=== PATIENT | female | born 1990 | race Caucasian/White ===

== ENCOUNTER 2025-01-05 09:56 | Outpatient (AMB) | payer OTHER, SELFPAY ==
[2025-01-05 10:04] VITALS: BP 120/78; PULSE 79; RESP 18; TEMP 36.8; O2SAT 99; BMI 37.2
--- NOTE | 2025-01-05 10:04 | MHC.OFFWIV ---
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 Pt c/o allergic reaction as she is having itchy throat facial swelling. Allergies amoxicillin [Augmentin] Allergy (Unknown, Verified 01/05/25 10:08) hives clavulanic acid [Augmentin] Allergy (Unknown, Verified 01/05/25 10:08) hives Augmentin Allergy (Unknown, Uncoded 01/05/25 10:08) rash From AUGMENTIN Allergy (Unknown, Uncoded 01/05/25 10:08) RASH From Augmentin Allergy (Unknown, Uncoded 01/05/25 10:08) RASH penicillin Allergy (Unknown, Uncoded 01/05/25 10:08) hives Do you need a note to return to daycare/school/sports/work: No HPI HPI Comments History of Present Illness Details History of Present Illness - The patient is a 34-year-old female presenting with an acute allergic reaction with facial swelling and urticaria, beginning after the use of new topical products. - Symptoms initiated with lower lip swelling, progressing to upper lip and face swelling despite self-administration of diphenhydramine, with temporary relief noted, pt has stopped using benadryl. - Patient used [employer] lotion and [employer] Moisturizer on the body, leading to the current urticarial outbreak, manifesting without respiratory symptoms. - Symptoms include widespread hives and pruritus on the trunk and extremities, alleviated partially by washing products off her body. - Current treatment remains sedative-limited in the morning due to travel, despite partial relief through previous antihistamine use. Physical Exam General: Cooperative, healthy appearing, comfortable, no acute distress and well developed Orientation: Patient oriented x3 Limitations: No limitations Head: Normal to inspection Ears: Hearing grossly normal bilaterally Nose: Normal external nose present Face and sinus: Swelling noted on the face Eyes: Appearance normal, both eyes and all related structures Neck: Normal visual inspection and Yes full ROM, good air flow Respiratory: Normal respiratory effort and able to speak in complete sentences. Clear to auscultation bilaterally Cardiovascular: Regular rate and rhythm. Normal S1 and S2 Skin: urticarial rash on torso, bilateral legs, hips and arms, edema in hands. Neuro: Patient oriented x3 Extremities: Normal to inspection Review of Systems Const All systems reviewed & are unremarkable except as noted in HPI and below Physical Exam Vital Signs: Last Vital Signs Temp 98.3 F 01/05/25 10:04 Pulse 79 01/05/25 10:04 Resp 18 01/05/25 10:04 BP 120/78 01/05/25 10:04 Pulse Ox 99 01/05/25 10:04 Oxygen Delivery Method Room Air 01/05/25 10:04 BMI result Body Mass Index 37.2 Office Meds diphenhydramine HCl 25 mg tablet Performing Provider: Liset Overton PA-C Performing Location: [facility] [place], [place] [facility] Administered by: Liset Overton PA-C on 01/05/25 10:44 Dose Route Admin Location Dispensed Lot Number Expiration Date NDC Oxyacetylene Torch Operator 25 mg PO 2 tab [id number] 06/10/27 0324-2630-47 prednisone 20 mg tablet Performing Provider: Liset Overton PA-C Performing Location: [facility] [place] [place] [facility] Administered by: Liset Overton PA-C on 01/05/25 10:44 Dose Route Admin Location Dispensed Lot Number Expiration Date NDC Oxyacetylene Torch Operator 20 mg PO 2 tab [id number] 02/08/26 Assessment & Plan Assessment & Plan (1) Contact dermatitis: Code(s): L25.9 - Unspecified contact dermatitis, unspecified cause Qualifiers: Contact dermatitis type: allergic Contact dermatitis trigger: cosmetics Qualified Code(s): L23.2 - Allergic contact dermatitis due to cosmetics Plan: VSS, pt well appearing and PE remarkable for fulminant urticarial rash and hand edema The patient requires immediate management for an acute allergic reaction, including administration of diphenhydramine for symptom control and a five-day prednisone course to manage inflammation. Gave pt 25mg Benadryl and 40mg prednisone in office. The patient receives an EpiPen for potential severe reactions, with comprehensive instruction on its use, and an emphasis on selecting hypoallergenic products. Continuation of prescribed medications is ensured via pharmacy delivery with precise dosage timing advice to promote compliance and reduce side effects. Emergency protocol, including EpiPen utilization and subsequent medical intervention, is discussed with the patient. Should discuss seeing Sander Operator with PCP. If she has any throat tickling, swelling, difficulty breathing, she should call 911 and use her Epi-pen. Patient was informed and verbally consented to the use of an ambient scribe for clinic note documentation during this visit. Orders: Orders AMB Diphenhydramine Adult Dose Today L23.2 - Allergic contact dermatitis due to cosmetics AMB Prednisone Adult Dose Today L23.2 - Allergic contact dermatitis due to cosmetics Medications: New prednisone 40 mg (2 x 20 mg) PO DAILY 8 tabs 0RF diphenhydramine HCl 25 mg PO ONCE 1 tab 0RF allergic reaction L23.2 - Allergic contact dermatitis due to cosmetics epinephrine (EpiPen 2-Jake) not to exceed 6 doses per episode 0.3 mg (0.3 mL) IM Q10M PRN 2 ea 0RF anaphylaxis prednisone 20 mg PO ONCE 2 tabs 0RF wheezing L23.2 - Allergic contact dermatitis due to cosmetics Coding Level of Care Code New Pt Level 4 (70230) Diagnoses Allergic contact dermatitis due to cosmetics L23.2 Contact dermatitis type: allergic Contact dermatitis trigger: cosmetics
== END 2025-01-05 10:50 | disposition home or self-care (01) ==
PROVIDERS: PCP Pediatrics; Visit Provider Physician Assistant
DX: L23.2 Allergic contact dermatitis due to cosmetics (principal)

== ENCOUNTER → 2025-01-05 09:56 | Outpatient (BNVA) | payer OTHER, SELFPAY | PROVIDERS: PCP Pediatrics | DX: L23.2 Allergic contact dermatitis due to cosmetics (principal) ==

== ENCOUNTER 2025-05-28 06:41 | Emergency (ER) | payer OTHER, SELFPAY ==
[2025-05-28 06:46] VITALS: BMI 34.9
[2025-05-28 06:57] VITALS: BP 148/89; PULSE 79; RESP 20; TEMP 36.8; O2SAT 99
--- NOTE | 2025-05-28 06:59 | ED_ITS ---
HPI - Allergic Reaction General Chief complaint: Allergic Reaction Stated complaint: allergic reaction Time Seen by Provider: 05/28/25 07:06 Source: patient Mode of arrival: ambulatory Limitations: no limitations History of Present Illness ED Provider: Dr. Sangita Nava HPI narrative: Patient comes to the emergency room complaining of facial swelling, upper lip swelling and feeling that her throat is closing up, becoming more difficult to talk and swallow. Patient states that the facial swelling started around 10 hours ago. Patient was given 2 tablets of Benadryl at work. Patient states that initially it seemed to improve so she went home. When patient woke up in the morning, patient had hives,, itchiness in the palms. To patient's knowledge, she is allergic to some antibiotics but has not had any antibiotics. Patient known to be allergic to her cat but the allergies are mild. Related Data Home Medications ?Medication ?Instructions ?Recorded ?Confirmed drospirenone 3 mg-ethinyl tab PO DAILY 01/05/25 estradiol 0.02 mg tablet (Maeve (28)) Previous Rx's ?Medication ?Instructions ?Recorded epinephrine 0.3 mg/0.3 mL 0.3 mg (0.3 mL) IM Q10M PRN 01/05/25 injection, auto-injector (EpiPen anaphylaxis #2 ea 2-Jake) prednisone 20 mg tablet 40 mg (2 x 20 mg) PO DAILY # 8 tabs 01/05/25 epinephrine 0.3 mg/0.3 mL 0.3 mg (0.3 mL) IM Q10M PRN 05/28/25 injection, auto-injector (EpiPen anaphylaxis #2 ea 2-Jake) famotidine 40 mg tablet 40 mg PO BEDTIME 5 days #5 t abs 05/28/25 prednisone 20 mg tablet 40 mg (2 x 20 mg) PO DAILY 5 days 05/28/25 #10 tabs Allergies Allergy/AdvReac Type Severity Reaction Status Date / Time amoxicillin (Augmentin) Allergy Unknown hives Verified 05/28/25 06:48 clavulanic acid (Augmentin) Allergy Unknown hives Verified 05/28/25 06:48 Augmentin Allergy Unknown rash Uncoded 05/28/25 06:48 From AUGMENTIN Allergy Unknown RASH Uncoded 05/28/25 06:48 From Augmentin Allergy Unknown RASH Uncoded 05/28/25 06:48 penicillin Allergy Unknown hives Uncoded 05/28/25 06:48 Review of Systems 2 Review of Systems: Constitutional : No Weight loss, No Fever, No Chills, No Night Sweats, No Fatigue, No Malaise ENT/Mouth : No Hearing loss, No Ear Pain, No Nasal Congestion, No Sinus Pain, No Hoarseness, complaining of throat feeling like it is closing up, difficulty speaking and swallowing, No Rhinorrhea, No Swallowing Difficulty Eyes: No Eye Pain, No Swelling, No Redness, No Foreign Body, No Discharge, No Vision Changes Cardiovascular : No Chest Pain, No SOB, No Dyspnea on Exertion, No Orthopnea, No Edema, No Palpitations Respiratory : No Cough, No Sputum, No Wheezing, No Smoke Exposure, No Dyspnea Gastrointestinal : No Nausea, No Vomiting, No Diarrhea, No Constipation, No abdominal Pain, No Hematochezia, No Melena Genitourinary : no irregular bleeding, No Dysuria, No Urinary Frequency, No Hematuria, No Urinary Incontinence, No Urgency, No Flank Pain, No Urinary Flow Changes, No Hesitancy Musculoskeletal : No joint pain, No Myalgias, No Joint Swelling Skin : No Skin Lesions, No rash, complaining of itchy palms, hives Neuro : No Weakness, No Numbness, No Paresthesias, No Loss of Consciousness, No Dizziness, No Headache Psych : No Anxiety/Panic, No Depression, No SI/HI/AH/VH, No Social Issues, Heme/Lymph: No Bruising, No Bleeding,No Lymphadenopathy Endocrine : No Polyuria, No Polydipsia, No Temperature Intolerance PMFSH Social History Social History Advance Directives: No Advance Directives Information Provided: No Do you have a plan to hurt others: No Plan Physical Exam ED Exam Exam: Appearance: Alert. Oriented X3. No acute distress. Eyes: Pupils equal, round and reactive to light. ENT: Pharynx normal. Patient's uvula is midline. Patient's upper lip bilaterally swelling and mild perioral swelling as well. Patient has hoarse voice Neck: Normal inspection. Neck supple. No lymph nodes noted. No crepitus CVS: Normal heart rate and rhythm. Pulses normal. Normal S1 and S2 Respiratory: No respiratory distress. Breath sounds normal. No Wheezing. No rales Abdomen: Soft and nontender. No rigidity. No distention. Skin: Skin warm and dry. Normal skin color. Normal skin turgor. Extremities: No lower extremity edema. No Lacerations. No Rash Neuro: Oriented X 3. No motor deficit. No sensory deficit. Moving all extremities. No slurred speech. CN 2 through 12 grossly intact Psych: calm, cooperative, normal affect Vital Signs: Vital Signs - 24 hr 05/28/25 06:57 05/28/25 07:09 Temperature 98.2 F Pulse Rate 79 70 Respiratory Rate 20 Blood Pressure 148/89 H 134/86 Pulse Oximetry 99 Oxygen Delivery Method Room Air BMI result Body Mass Index 34.9 Course Course Course Narrative: Patient's vitals are stable. However, patient's voice is becoming quite hoarse. Patient receiving IM epinephrine, IV Benadryl, Pepcid, Solu-Medrol. Basic labs pending. I asked patient's nurse and charge nurse to bring the patient to the main ED. Patient needs close airway monitoring , needs to be on telemetry with continuous pulse ox Sign out given to my colleague Dr. Cruz Reevaluation(s) Reevaluation #1: Patient re-evaluated, she received epinephrine, Benadryl, steroids, the time my evaluation she is speaking full sentences, she has minimal edema of the upper lip, no edema of the posterior pharynx, uvula midline Otherwise supple neck, this is a recurrent issue, she is not on lisinopril, does not really know what triggers these symptoms, was supposed to see immunology/natural resources specialist but lost her insurance nauseous her insurance back she does have a PCP, no stridor and no wheezing, we will continue to monitor but discharge is anticipated. Time: 07:20 Reevaluation #2: Re-evaluated, pretty much resolved any swelling of the upper lip, speaking full sentences doing well with the discharge see my discharge instructions Time: 09:43 Medications Administered Discontinued Medications Generic Name Dose Route Start Last Admin Trade Name Freq PRN Reason Stop Dose Admin Diphenhydramine HCl 50 mg 05/28/25 06:58 05/28/25 07:15 Diphenhydramine Hcl 50 Mg/Ml Vial IVPUSH 05/28/25 06:59 50 mg ONCE ONE Administration Epinephrine 0.3 mg 05/28/25 06:58 05/28/25 07:09 Epinephrine 1 Mg/Ml Vial IM 05/28/25 06:59 0.3 mg STAT STA Administration Famotidine 20 mg 07/18/25 06:58 05/28/25 07:15 Famotidine/Pf 20 Mg/2 Ml Vial IVPUSH 05/28/25 06:59 20 mg ONCE ONE Administration Sodium Chloride 1,000 mls @ 999 mls/hr 05/28/25 07:07 05/28/25 07:17 Ns IVCONT 05/28/25 08:07 999 mls/hr .Q1H1M ONE Administration Methylprednisolone Sodium Succinate 125 mg 05/28/25 06:58 05/28/25 07:15 Methylprednisolone Sod Succ 125 Mg/2 Ml Vial IVPUSH 05/28/25 06:59 125 mg ONCE ONE Administration Medical Decision Making Differential Diagnosis Differential Diagnoses: The differential diagnosis associated with the presentation includes (Anaphylaxis, angioedema) Admission/Observation Consideration of admission/observation: Escalation of care including admission/observation considered Lab Data 05/28/25 07:05 05/28/25 07:05 Labs: Lab Results 05/28/25 Range/Units 07:05 WBC 8.4 (4.8-10.8) X10*3/uL RBC 4.41 (4.20-5.50) X10*6/uL Hgb 10.6 L (12.0-16.0) g/dl Hct 33.0 L (37.0-47.0) % MCV 74.8 L (80.0-98.0) fL MCH 24.0 L (27.0-33.0) pg MCHC 32.1 (31.0-35.0) g/dl RDW 14.7 (11.0-16.0) % Plt Count 391 (160-400) X10*3/uL MPV 10.9 (9.4-12.3) fL Immature Gran % (Auto) 0.2 (0.0-0.4) % Neut % (Auto) 53.8 (45-73) % Lymph % (Auto) 34.7 (20-40) % [place] % (Auto) 8.6 (2-11) % Eos % (Auto) 2.3 (0-4) % Baso % (Auto) 0.4 (0-2) % Lymph # (Auto) 2.9 (1.2-4.9) X10*3/uL [place] # (Auto) 0.7 (0.1-1.2) X10*3/uL Eos # (Auto) 0.2 (0.0-0.4) X10*3/uL Baso # (Auto) 0.0 (0.0-0.2) X10*3/uL Abs Immat Gran (auto) 0.02 (0.00-0.03) X10*3/uL Absolute Neuts (auto) 4.5 (2.0-8.3) x10*3/uL Absolute Nucleated RBC 0.000 (0.0-0.012) X10*3/uL Nucleated RBC % (auto) 0.0 (0.0-0.2) /100WBC Sodium 139 (135-145) mmol/L Potassium 3.6 (3.3-5.1) mmol/L Chloride 109 H (96-108) mmol/L Carbon Dioxide 19 L (22-29) mmol/L Anion Gap 15 (12-20) BUN 9 (9-16) mg/dL Creatinine 0.66 (0.5-1.4) mg/dL Estim Creat Clear Calc 134.6 Estimated GFR > 60 Random Glucose 93 (60-115) mg/dL Calcium 9.3 (8.4-10.2) mg/dL Critical Care Time Critical Care Time Critical Care Time: Yes Total Critical Care Time: 35 Attestation: I have personally provided critical care time. Time includes review of lab data, radiology results, discussion with consultants, and monitoring for potential decompensation. Intervention performed as documented. Discharge Plan Discharge Clinical Impression: Angioedema Patient Disposition: Home, Self-Care Instructions: Angioedema (ED) Additional Instructions: We will continue with steroids starting tomorrow as well as famotidine, you will have epinephrine to self inject if you have worsening swelling or shortness of breath or difficulty breathing and then presented to emergency department for evaluation as discussed with you that is very important for you to have a follow up with the PCP and involved to figure out if this is hereditary angioedema or this is an allergy to external substances or this is a autoimmune issue. Prescriptions: New prednisone 20 mg tablet 40 mg PO DAILY 5 Days Qty: 10 0RF epinephrine [EpiPen 2-Jake] 0.3 mg/0.3 mL auto-injector 0.3 mg IM Q10M PRN (Reason: anaphylaxis) Qty: 2 0RF Rx Instructions: for 2 doses famotidine 40 mg tablet 40 mg PO BEDTIME 5 Days Qty: 5 0RF No Action drospirenone-ethinyl estradiol [Maeve (28)] 3-0.02 mg tablet PO DAILY prednisone 20 mg tablet 40 mg PO DAILY Qty: 8 0RF epinephrine [EpiPen 2-Jake] 0.3 mg/0.3 mL auto-injector 0.3 mg IM Q10M PRN (Reason: anaphylaxis) Qty: 2 0RF Rx Instructions: not to exceed 6 doses per episode Print Language: Jamaican
[2025-05-28 07:09] VITALS: BP 134/86; PULSE 70
[2025-05-28 07:09] LABS: MANUAL DIFF FLAG NO
[2025-05-28 07:11] LABS: Hematocrit 33.0 % (37.0-47.0); Hemoglobin 10.6 g/dl (12.0-16.0); Imm Gran Abs Auto 0.02 X10*3/uL (0.00-0.03); Imm Gran Pct Auto 0.2 % (0.0-0.4); Lymphocytes Absolute Auto 2.9 X10*3/uL (1.2-4.9); Mean Corpuscular HGB Conc 32.1 g/dl (31.0-35.0); Mean Corpuscular Hemoglobin 24.0 pg (27.0-33.0); Mean Corpuscular Volume 74.8 fL (80.0-98.0); NRBC Abs Auto 0.000 X10*3/uL (0.0-0.012); NRBC Pct Auto 0.0 /100WBC (0.0-0.2); Platelet Count 391 X10*3/uL (160-400); Red Blood Count 4.41 X10*6/uL (4.20-5.50); White Blood Count 8.4 X10*3/uL (4.8-10.8)
[2025-05-28 07:24] LABS: Anion Gap 15 (12-20); Blood Urea Nitrogen 9 mg/dL (9-16); Calcium 9.3 mg/dL (8.4-10.2); Carbon Dioxide 19 mmol/L (22-29); Chloride 109 mmol/L (96-108); Creatinine Clr Calc Pharmacy 134.6; Estimated Glomerular Filt Rate > 60; Potassium 3.6 mmol/L (3.3-5.1); Sodium 139 mmol/L (135-145)
[2025-05-28 10:06] VITALS: BP 128/71; PULSE 60; RESP 18; TEMP 36.6; O2SAT 96
== END 2025-05-28 10:06 | disposition home or self-care (01) ==
PROVIDERS: Emergency Provider Emergency Medicine
DX: T78.3XXA Angioneurotic edema, initial encounter (principal); J30.81 Allergic rhinitis due to animal (cat) (dog) hair and dander; X58.XXXA Exposure to other specified factors, initial encounter
CPT/HCPCS: 36415; 80048; 85025; 96361; 96372; 96374; 96375; 99283; 99291; J0165; J1200; J1308; J2919

== ENCOUNTER 2025-07-23 08:41 | Emergency (ER) | payer OTHER, SELFPAY ==
[2025-07-23 08:45] VITALS: BP 128/73; PULSE 83; RESP 18; TEMP 36.3; O2SAT 100; BMI 33.1
--- NOTE | 2025-07-23 10:31 | ED.GENADULT ---
HPI - General Adult General Chief complaint: Allergic Reaction Stated complaint: hives, SOB Time Seen by Provider: 07/23/25 09:22 Source: patient Mode of arrival: ambulatory Limitations: no limitations History of Present Illness ED Provider: LOREN Grimm HPI narrative: This is a 35-year-old female past medical history significant for contact dermatitis, allergic to amoxicillin and penicillins presenting to the emergency department with diffuse body rash ongoing since this morning. Patient reports she woke up this way, this has happened to her in the past. She denies any new lotions, creams or anything new that she may have come in contact with. She has not eaten anything new. She tells me she took 110 mg prednisone tablet which she had at home which seemed to alleviate her symptoms some. She reports she has hives all over her body they are quite itchy. She denies nausea, vomiting, chest pain, shortness breath, fevers, chills, headache, vision changes, dizziness, weakness, wheezing. Related Data Home Medications ?Medication ?Instructions ?Recorded ?Confirmed drospirenone 3 mg-ethinyl tab PO DAILY 01/05/25 estradiol 0.02 mg tablet (Maeve (28)) Previous Rx's ?Medication ?Instructions ?Recorded epinephrine 0.3 mg/0.3 mL 0.3 mg (0.3 mL) IM Q10M PRN 01/05/25 injection, auto-injector (EpiPen anaphylaxis #2 ea 2-Jake) prednisone 20 mg tablet 40 mg (2 x 20 mg) PO DAILY #8 tabs 01/05/25 epinephrine 0.3 mg/0.3 mL 0.3 mg (0.3 mL) IM Q10M PRN 05/28/25 injection, auto-injector (EpiPen anaphylaxis #2 ea 2-Jake) famotidine 40 mg tablet 40 mg PO BEDTIME 5 days #5 tabs 05/28/25 prednisone 20 mg tablet 40 mg (2 x 20 mg) PO DAILY 5 days 05/28/25 #10 tabs diphenhydramine HCl 25 mg capsule 25 mg PO TID PRN allergic reaction 07/23/25 (Benadryl) #20 caps famotidine 40 mg tablet (Pepcid) 40 mg PO DAILY #14 tabs 07/23/25 prednisone 20 mg tablet 40 mg (2 x 20 mg) PO DAILY 5 days 07/23/25 #10 tabs Allergies Allergy/AdvReac Type Severity Reaction Status Date / Time amoxicillin (Augmentin) Allergy Unknown hives Verified 07/23/25 08:48 clavulanic acid (Augmentin) Allergy Unknown hives Verified 07/23/25 08:48 Augmentin Allergy Unknown rash Uncoded 05/28/25 06:48 From AUGMENTIN Allergy Unknown RASH Uncoded 05/28/25 06:48 From Augmentin Allergy Unknown RASH Uncoded 05/28/25 06:48 penicillin Allergy Unknown hives Uncoded 05/28/25 06:48 Review of Systems Review of Systems: Yes all other systems are reviewed and are negative [facility] Past Medical History Attestation statement: The following information was validated with the patient. Source: old records reviewed and nursing notes reviewed Social History Social History Advance Directives: No Advance Directives Information Provided: No Physical Exam ED Exam Exam: Appearance: Alert.? Oriented X3.? No acute distress.? Head: Normocephalic, atraumatic, no step-offs or deformities Eyes: Pupils equal, round and reactive to light.? ENT: Pharynx normal.? Normal pharynx no edema to tongue, lips, uvula Neck: Normal inspection.? Neck supple.? CVS: Normal heart rate and rhythm.? Pulses normal.? Respiratory: No respiratory distress.? Breath sounds normal.? Abdomen: Soft and nontender.? Skin: Skin warm and dry.? Normal skin color.? Normal skin turgor.?+ Hives throughout entire body. ( image below patients leg earlier today) Extremities: No lower extremity edema.? No calf ttp. 5/5 strength to bilateral upper and lower extremities Back: No midline tenderness, no C-spine tenderness, full range of motion, no CVA tenderness bilaterally Neuro: Oriented X 3.? No motor deficit.? No sensory deficit. CN 2-12 intact Vital Signs: Vital Signs - 24 hr 07/23/25 08:45 07/23/25 11:59 Temperature 97.3 F 98.0 F Pulse Rate 83 71 Respiratory Rate 18 18 Blood Pressure 128/73 99/53 L Pulse Oximetry 100 98 Oxygen Delivery Method Room Air Room Air BMI result Body Mass Index 33.1 vss Course Reevaluation(s) Reevaluation #1: Patient feeling a lot better after IV medications. Hives much improved. Patient will be discharged home she does have an appointment with research geologist in a few days. Educated patient on diagnosis and treatment plan, answered all question, patient verbalizes understanding. At this time patient will be discharged home, advised to return with new or worsening symptoms. Educated on worrisome signs and symptoms and when to return. At this time I feel comfortable discharge home. Time: 12:21 Medications Administered Discontinued Medications Generic Name Dose Route Start Last Admin Trade Name James PRN Reason Stop Dose Admin Dexamethasone Sodium Phosphate 10 mg 07/23/25 10:07/23/25 11:02 Dexamethasone Sod Phosphate 10 Mg/Ml Vial IVPUSH 07/23/25 10:25 10 mg ONCE ONE Administration Diphenhydramine HCl 25 mg 07/23/25 10:07/23/25 11:02 Diphenhydramine Hcl 50 Mg/Ml Vial IVPUSH 07/23/25 10:25 25 mg ONCE ONE Administration Famotidine 20 mg 07/23/25 10:07/23/25 11:02 Famotidine/Pf 20 Mg/2 Ml Vial IVPUSH 07/23/25 10:25 20 mg ONCE ONE Administration Medical Decision Making Medical Decision Making MDM Narrative: 35 year old female presents w/ hives all over body since this morning. Hx of this in the past. Took 10mg of prednisone this AM PE- hives throughout entire body. Normal pharynx no edema to tongue, lips, uvula Hx and pe concerning for allergic reaction. No signs of anaphylaxis. No signs of airway compromise Plan- iv benadryl, decadron Differential Diagnosis Differential Diagnoses: The differential diagnosis associated with the presentation includes ( Hx and pe concerning for allergic reaction. No signs of anaphylaxis. No signs of airway compromise ) Admission/Observation Consideration of admission/observation: Escalation of care including admission/observation considered (No indication) Prescription Management I considered prescription management with: Other (Prednisone, Benadryl, Pepcid) Chronic Conditions Patient?s care impacted by: Other (Allergies) Critical Care Time Critical Care Time Critical Care Time: Yes Total Critical Care Time: 35 Attestation: I attest to this time spent taking care of the patient, obtaining history, physical, reviewing labs, imaging, treatment of patients condition +/- specialist/hospitalist consult +/- procedure Discharge Plan Discharge Clinical Impression: Allergic reaction Patient Disposition: Home, Self-Care Instructions: Allergy Testing (ED) Additional Instructions: Take your medications as prescribed. If you were prescribed antibiotics today, it is important that you take your medication to their entirety, do not skip any doses, do not finish them early. Follow-up with your primary care provider this week. Return to the emergency department with new or worsening symptoms. Such as fevers, chills, chest pain, shortness of breath, nausea, vomiting, dizziness, headache, vision changes, lethargy In case of emergency call 911 I know you have an EpiPen at home instructions below. How to use an EpiPen: ? Place the orange tip against the middle of the outer thigh. ? Swing and push the auto-injector firmly into the thigh until it ?clicks? ? Hold firmly in place for three seconds?count slowly, ?1, 2, 3? An EpiPen has been sent to your pharmacy this should only be used in severe emergency such as inability to breathe trouble speaking, shortness breath or any signs of anaphylaxis as discussed. If he use an EpiPen it is crucial you come in to an emergency department to be evaluated as you can have a rebound effect. Please follow-up with an allergy doctor. Please follow-up with the allergy doctor as soon as possible. Prescriptions: New diphenhydramine HCl [Benadryl] 25 mg capsule 25 mg PO TID PRN (Reason: allergic reaction) Qty: 20 0RF famotidine [Pepcid] 40 mg tablet 40 mg PO DAILY Qty: 14 0RF prednisone 20 mg tablet 40 mg PO DAILY 5 Days Qty: 10 0RF No Action prednisone 20 mg tablet 40 mg PO DAILY 5 Days Qty: 10 0RF epinephrine [EpiPen 2-Jake] 0.3 mg/0.3 mL auto-injector 0.3 mg IM Q10M PRN (Reason: anaphylaxis) Qty: 2 0RF Rx Instructions: for 2 doses famotidine 40 mg tablet 40 mg PO BEDTIME 5 Days Qty: 5 0RF drospirenone-ethinyl estradiol [Maeve (28)] 3-0.02 mg tablet PO DAILY prednisone 20 mg tablet 40 mg PO DAILY Qty: 8 0RF epinephrine [EpiPen 2-Jake] 0.3 mg/0.3 mL auto-injector 0.3 mg IM Q10M PRN (Reason: anaphylaxis) Qty: 2 0RF Rx Instructions: not to exceed 6 doses per episode Referrals: Precious Ponce FNP [Primary Care Provider, Internal Medicine] Stand Alone Forms: Work/School Release Interventions: ED Discharge Assessment Last Done: 07/23/25 11:59 Discharge Date/Time: 07/23/25 12:00 Print Language: Bhutanese
--- OUTSIDE RECORDS SUMMARY | 2025-07-23 11:02 | XMS_ITS | Clinical Summary ---
Author Organization [facility] Address [address] [place] [address] Care Team Providers Care Family Assistant Name Role Phone Unavailable Primary Care Provider Unavailabl e Social History Tobacco Use Types Packs/Day Years Used Date Smoking Tobacco: Never Assessed Comments Unknown Sex and Gender Information Value Date Recorded Sex Assigned at Not on file Legal Sex Female 6:51 PM EST Gender Identity Not on file Sexual Orientation Not on file Plan of Treatment Health Maintenance Due Date Last Done Comments Hepatitis C Virus Screening 1992 HIV Screening 2005 DTaP/Tdap/Td Vaccines (1 - Tdap) 2011 Hepatitis B Vaccines (1 of 3 - 19+ 3-dose series) 2011 HPV Vaccines (1 - 3-dose SCD M series) 2019 COVID-19 Vaccine ( - 2023-2 5 season) 2025 Pneumococcal Vaccine: Pediat tom (0-5 Years) and At-Risk Patients (6 to 49 Years) Aged Out No longer eligible b ased on patient's age to complete this topic
[2025-07-23 11:59] VITALS: BP 99/53; PULSE 71; RESP 18; TEMP 36.7; O2SAT 98
== END 2025-07-23 12:00 | disposition home or self-care (01) ==
PROVIDERS: Emergency Provider Emergency Medicine; PCP Nurse Practitioner Family
DX: L50.0 Allergic urticaria (principal); R06.02 Shortness of breath; Z79.899 Other long term (current) drug therapy
CPT/HCPCS: 96374; 96375; 99284; J1100; J1200; J1308

== ENCOUNTER 2025-09-02 06:56 | Emergency (ER) | payer OTHER, SELFPAY ==
--- NOTE | 2025-09-02 07:02 | ED_ITS ---
HPI - General Adult General Chief complaint: Allergic Reaction Stated complaint: allergic reaction? Time Seen by Provider: 09/02/25 07:01 Source: patient, RN notes reviewed and old records reviewed Mode of arrival: ambulatory Limitations: no limitations History of Present Illness ED Provider: Lynn MOSHER narrative: Patient is a 35-year-old female presenting to the emergency department with complaint of swelling to lips as well as hives to neck, abdomen, thighs since around 9 p.m. last night. States she has been here several times recently for similar symptoms. She denies any new foods, soaps, etc. or other known trigger. She is not on MARY eyes. She denies any known family history of similar reactions. She currently denies shortness of breath or difficulty breathing. She does report that her rash is pruritic. Last took Benadryl around 1 a.m.. States her PCP recently placed an urgent referral for an traffic control officer but she does not have an appointment scheduled yet. Denies abdominal pain, nausea, vomiting, diarrhea. MD complaint: Rash, angioedema Onset (ago): hour(s) Related Data Home Medications ?Medication ?Instructions ?Recorded ?Confirmed drospirenone 3 mg-ethinyl tab PO DAILY 01/05/25 estradiol 0.02 mg tablet (Maeve (28)) Previous Rx's ?Medication ?Instructions ?Recorded epinephrine 0.3 mg/0.3 mL 0.3 mg (0.3 mL) IM Q10M PRN 01/05/25 injection, auto-injector (EpiPen anaphylaxis #2 ea 2-Jake) prednisone 20 mg tablet 40 mg (2 x 20 mg) PO DAILY # 8 tabs 01/05/25 epinephrine 0.3 mg/0.3 mL 0.3 mg (0.3 mL) IM Q10M PRN 05/28/25 injection, auto-injector (EpiPen anaphylaxis #2 ea 2-Jake) famotidine 40 mg tablet 40 mg PO BEDTIME 5 days #5 t abs 05/28/25 prednisone 20 mg tablet 40 mg (2 x 20 mg) PO DAILY 5 days 05/28/25 #10 tabs diphenhydramine HCl 25 mg capsule 25 mg PO TID PRN all ergic reaction 07/23/25 (Benadryl) #20 caps famotidine 40 mg tablet (Pepcid) 40 mg PO DAILY #14 ta bs 07/23/25 prednisone 20 mg tablet 40 mg (2 x 20 mg) PO DAILY 5 days 07/23/25 #10 tabs prednisone 10 mg tablet See Rx Instructions .Route 1 .COMPLEX #15 tabs Allergies Allergy/AdvReac Type Severity Reaction Status Date / Time amoxicillin (Augmentin) Allergy Unknown hives Verified 09/02/25 07:05 clavulanic acid (Augmentin) Allergy Unknown hives Verified 09/02/25 07:05 Augmentin Allergy Unknown rash Uncoded 05/28/25 06:48 From AUGMENTIN Allergy Unknown RASH Uncoded 05/28/25 06:48 From Augmentin Allergy Unknown RASH Uncoded 05/28/25 06:48 penicillin Allergy Unknown hives Uncoded 05/28/25 06:48 Review of Systems Review of Systems: As per HPI Yes all other systems are reviewed and are negative Constitutional: Constitutional: Reports as per HPI [facility] Social History Social History Advance Directives: No Advance Directives Information Provided: No Physical Exam ED Vital Signs: Vital Signs - 24 hr 09/02/25 07:03 09/02/25 08:00 09/02/25 10:00 Temperature 99.2 F Pulse Rate 86 94 90 Respiratory Rate 16 18 18 Blood Pressure 131/69 117/95 H 125/90 H Pulse Oximetry 98 96 96 Oxygen Delivery Method Room Air Room Air Room Air BMI result Body Mass Index 32.6 Vital signs have been reviewed and appear to be correct. Blood pressure normal. Heart rate normal. Respiratory rate normal. Temperature normal. Oxygen saturation normal. Const General: cooperative, healthy appearing and no acute distress Orientation/consciousness: oriented to person, oriented to place, oriented to t jose carlos and patient oriented x3 Limitations: no limitations HENMT Head: Yes normocephalic and Yes atraumatic Ears: hearing grossly normal bilaterally and external ears normal General nose exam: Normal external nose present and Normal nasal mucous membranes and turbinates present Face and sinus: Yes face symmetric Mouth: Normal oral and palatal mucosa present, tongue normal, oropharynx normal, moist mucous membranes, no audible dysphonia, no drooling, lip abnormal bilateral diffuse swelling and no trismus Throat: Yes posterior oropharynx normal, Yes uvula midline and No uvular edema Eyes Pupils: Equal, round and reactive pupils present Neck Neck: Yes normal visual inspection and Yes supple Resp Effort & Inspection: normal respiratory effort and able to speak in complete sentences Auscultation: clear to auscultation bilaterally and no wheezes Cardio Rate: regular rate Rhythm: regular rhythm Heart sounds: S1 normal heart sound present and S2 normal heart sound present GI Palpation (GI): Soft to palpation and nontender Auscultation: normoactive bowel sounds General: Yes no CVA tenderness Back/Spine/Pelvis Back: no CVA tenderness Skin Other: diffuse hives to neck, trunk, extremities General skin exam: elasticity normal and turgor normal Neuro General: oriented to person, oriented to place, oriented to time, patient oriented x3, moves all extremities, no focal motor deficits and CN's II-XI intact bilaterally Cranial nerves: Yes Equal, round and reactive pupils present Cognition (Neuro): normal cognition Extrem General: Yes full ROM, Yes no pedal edema and Yes no calf tenderness Psych Mental Status: mental status grossly normal Affect: normal affect Thought process: Normal thought process present Course Reevaluation(s) Reevaluation #1: Patient reports improvement in angioedema but states her rash is becoming itchy again. Appreciable improvement in angioedema specifically to lower lip. PO loratadine ordered. Viral serology negative. Time: 10:05 Reevaluation #2: Patient reports decreased itching after p.o. loratadine. She has been observed in the emergency department for over 4 hours with improvement in symptoms. I am comfortable with discharge home at this time. Advised daily cetirizine and famotidine, will also send a prednisone taper. Patient has an EpiPen at home. Follow up with PCP, traffic control officer. Return precautions discussed. Patient verbalized understanding of and agreement with plan. Time: 11:33 Medications Administered Discontinued Medications Generic Name Dose Route Start Last Admin Trade Name Espinozaq PRN Reason Stop Dose Admin Diphenhydramine HCl 25 mg 09/02/25 07:09 09/02/25 07:15 Diphenhydramine Hcl 50 Mg/Ml Vial IVPUSH 09/02/25 07:10 25 mg ONCE ONE Administration Famotidine 20 mg 09/02/25 07:09 09/02/25 07:15 Famotidine/Pf 20 Mg/2 Ml Vial IVPUSH 09/02/25 07:10 20 mg ONCE ONE Administration Loratadine 10 mg 09/02/25 10:02 09/02/25 10:20 Loratadine 10 Mg Tablet PO 09/02/25 10:03 10 mg ONCE ONE Administration Methylprednisolone Sodium Succinate 125 mg 09/02/25 07:09 09/02/25 07:15 Methylprednisolone Sod Succ 125 Mg/2 Ml Vial IVPUSH 09/02/25 07:10 125 mg ONCE ONE Administration Medical Decision Making Medical Decision Making [facility] Narrative: Patient is a 35-year-old female presenting to the emergency department with complaint of swelling to lips as well as hives to neck, abdomen, thighs since around 9 p.m. last night. On exam patient is awake, A+Ox3, VS WNL, afebrile, normal neurological exam without focal deficits, physical exam findings as above. Given reported symptoms and physical exam findings, initial differential includes but is not limited to allergic reaction, angioedema. Unlikely anaphylaxis as patient does not have airway involvement, is hemodynamically stable, has no GI sxs. She has an Epi-pen. Will medicate with benadryl, famotidine, solu-medrol and observe in the ED. Differential Diagnosis Differential Diagnoses: The differential diagnosis associated with the presentation includes As per [facility] Admission/Observation Consideration of admission/observation: Escalation of care including admission/observation considered Patient would have been admitted to the hospital and transferred to appropriate facility had their clinical presentation warranted hospital admission. Lab Data [facility] Lab Attestation statement: I reviewed the patient's lab results. As per [facility] Labs: Lab Results 09/02/25 Range/Units 07:23 COVID-19 (PAKO) Negative (Negative) COVID-19 Clin Com See Note Influenza Type A (KERRY) Negative (Negative) Influenza Type B (KERRY) Negative (Negative) Influenza A & B Note See Note External Record Review External record reviewed: Inpatient record, Office record and Outpatient record Prescription Management I considered prescription management with: Other Critical Care Time Critical Care Time Critical Care Time: Yes Total Critical Care Time: 37 Attestation: I have personally provided critical care time exclusive of time spent on separately billable procedures. Time includes review of lab data, radiology results, discussion with consultants, and monitoring for potential decompensation. Intervention performed as documented. Discharge Plan Discharge Clinical Impression: Angioedema, Allergic reaction Patient Disposition: Home, Self-Care Instructions: Angioedema (ED), General Allergic Reaction (ED), Allergy Testing (ED) Additional Instructions: You were evaluated in the emergency department today for an allergic reaction. You have been given medications to control your symptoms. You have been observed for several hours in the emergency department and you are stable for discharge at this time. We recommend that you take Zyrtec (cetirizine) and Pepcid (famotidine), which are available [id number], to help control your symptoms at home. The dose for Zyrtec is 10mg daily, however, you can increase this up to a total of 40mg (4 tabs) daily as needed to control your symptoms. Start by taking 1 tab in the morning and one at night, then two tabs (20mg) in the morning and one tab (10mg) at night, then increase to 2 tabs (20mg) in the am and 2 tabs (20mg) in the pm. Do not exceed 4 tabs (40mg) daily. You have also been given a prescription for steroids, please take them as directed. Schedule an appointment with your primary care physician for follow-up. Return to the emergency department if you experience rashes, difficulty breathing or swallowing, lip/mouth/tongue swelling, vomiting, or for any other concerning symptoms. Prescriptions: New prednisone 10 mg tablet See Rx Instructions .ROUTE .COMPLEX Qty: 15 0RF Rx Instructions: 50mg (5 tabs) x1 day, then 40 mg (4 tabs) x1 day, then 30 mg (3 tabs) x1 day, then 20 mg (2 tabs) times 1 day, then 10 mg (1 tab) x1 day No Action diphenhydramine HCl [Benadryl] 25 mg capsule 25 mg PO TID PRN (Reason: allergic reaction) Qty: 20 0RF famotidine [Pepcid] 40 mg tablet 40 mg PO DAILY Qty: 14 0RF prednisone 20 mg tablet 40 mg PO DAILY 5 Days Qty: 10 0RF prednisone 20 mg tablet 40 mg PO DAILY 5 Days Qty: 10 0RF epinephrine [EpiPen 2-Jake] 0.3 mg/0.3 mL auto-injector 0.3 mg IM Q10M PRN (Reason: anaphylaxis) Qty: 2 0RF Rx Instructions: for 2 doses famotidine 40 mg tablet 40 mg PO BEDTIME 5 Days Qty: 5 0RF drospirenone-ethinyl estradiol [Maeve (28)] 3-0.02 mg tablet PO DAILY prednisone 20 mg tablet 40 mg PO DAILY Qty: 8 0RF epinephrine [EpiPen 2-Jaek] 0.3 mg/0.3 mL auto-injector 0.3 mg IM Q10M PRN (Reason: anaphylaxis) Qty: 2 0RF Rx Instructions: not to exceed 6 doses per episode Print Language: Niuean
[2025-09-02 07:03] VITALS: BP 131/69; PULSE 86; RESP 16; TEMP 37.3; O2SAT 98; BMI 32.6
[2025-09-02 08:00] VITALS: BP 117/95; PULSE 94; RESP 18; O2SAT 96
[2025-09-02 08:01] LABS: COVID-19 Test Negative (Negative); IDNOW Serial# 55D5AD1C; IDNOW Serial# 58CA691E; Influenza B2 Negative (Negative)
--- OUTSIDE RECORDS SUMMARY | 2025-09-02 08:40 | XMS_ITS | Clinical Summary ---
Author Organization [facility] Address [address] [place] [address] Care Team Providers Care Biztalk Architect Name Role Phone Unavailable Primary Care Provider [...] of 3 - 19+ 3-dose series) 2011 COVID-19 Vaccine ( - 2023-2 5 season) 2025 HPV Vaccines (No Doses Required) Completed Pneumococcal Vaccine: Pediat tom (0-5 Years) and At-Risk Patients (6 to 49 Years) Aged Out No longer eligible b ased on patient's age to complete this topic
[2025-09-02 10:00] VITALS: BP 125/90; PULSE 90; RESP 18; O2SAT 96
[2025-09-02 11:44] VITALS: BP 116/70; PULSE 85; RESP 18; TEMP 36.4; O2SAT 96
== END 2025-09-02 11:56 | disposition home or self-care (01) ==
PROVIDERS: Registered Nurse Emergency; Emergency Provider Emergency Medicine; PCP Nurse Practitioner Family
DX: T78.3XXA Angioneurotic edema, initial encounter (principal); T78.49XA Other allergy, initial encounter; X58.XXXA Exposure to other specified factors, initial encounter
CPT/HCPCS: 87502; 87635; 96374; 96375; 99284; J1200; J1308; J2919

== ENCOUNTER 2025-10-27 15:40 | Outpatient (AMB) | payer OTHER, SELFPAY ==
[2025-10-27 15:46] VITALS: BP 138/94; PULSE 87; TEMP 36.8; O2SAT 98; BMI 32.8
--- NOTE | 2025-10-27 15:46 | AM.OFFWIN_ITS ---
Intake Vital Signs 10/27/25 15:46 Height 5 ft 4 in Weight 191 lb BMI 32.8 BP 138/94 H Blood Pressure Location Lt brachial Position Sitting Pulse 87 Pulse Source Pulse Oximeter Temp 98.3 F Temp Source Oral Pulse Oximetry (%) 98 Oxygen Delivery Method Room Air Intake Visit Reasons: EP-cough, body ache, sweating Intake Note: pt presents with body aches, fatigue, sweating, chest congestion with dry coughing, sinus congestion beginning yesterday Allergies cat dander (cats) Allergy (Severe, Verified 10/27/25 15:51) hives, swelling, anaphylaxis dog dander (dogs) Allergy (Severe, Verified 10/27/25 15:51) hives, swelling, anaphylaxis amoxicillin (Augmentin) Allergy (Unknown, Verified 09/02/25 07:05) hives clavulanic acid (Augmentin) Allergy (Unknown, Verified 09/02/25 07:05) hives mice Adverse Reaction (Severe, Uncoded 10/27/25 15:51) hives, swelling, anaphylaxis Do you need a note to return to daycare/school/sports/work: Yes HPI HPI Comments History of Present Illness Details She presents to office with flu like symptoms Onset last night + body aches and fatigue Woke up this afternoon and symptoms worse + subjective fever/chills + congestion and cough + wheeze No phlegm production She denies medicine being taken + appetite. No vomiting or diarrhea No sick contacts at home but friend had flu 1 week ago No flu vaccine this year. Review of Systems Const Reports chills, Reports fatigue, Reports fever(s) and Denies poor appetite ENT Denies otalgia, Reports nasal congestion, Reports nasal discharge and Denies sore throat Card Denies chest pain and Denies dyspnea Resp Reports chest congestion, Reports cough, Denies dyspnea and Reports wheezing GI Denies abdominal pain, Denies diarrhea, Denies nausea and Denies vomiting Musc Reports myalgias Endo Reports fatigue Aller/Immun Reports wheezing Physical Exam Exam Exam: General: Non-toxic, NAD. Speaking full sentences. Skin: Warm dry throughout Eye: EOMI HENT: + clear rhinorrhea Airway patent. Uvula midline. No pharyngeal erythema or edema. No UNDERWRITING SUPPORT MANAGER. Bilateral canals clear. TM non-erythematous, non-bulging. No TM perforation or hemotympanum noted. Respiratory: CTA bilaterally. No wheezes, rales or rhonchi. + dry cough on examination Cardiac: RRR. No murmur. Neurology: Alert. No aphasia or facial droop. Gait without abnormality Psych: Good mood and affect Vital Signs: Last Vital Signs Temp 98.3 F 10/27/25 15:46 Pulse 87 10/27/25 15:46 BP 138/94 H 10/27/25 15:46 Pulse Ox 98 10/27/25 15:46 Oxygen Delivery Method Room Air 10/27/25 15:46 BMI result Body Mass Index 32.8 Assessment & Plan Assessment & Plan (1) Upper respiratory infection: Code(s): J06.9 - Acute upper respiratory infection, unspecified Qualifiers: URI type: unspecified viral URI Qualified Code(s): J06.9 - Acute upper respiratory infection, unspecified Plan: Patient seen and evaluated. Lungs CTA COVID/Flu/RSV ordered and obtained/sent to lab [facility] May warrant Tamiflu tomorrow if flu + Given work note and may need to extend Increase fluids, bland diet, tylenol/ibuprofen Denies chance Patient gave verbal understanding and had no additional questions or concerns at time of discharge All questions answered Orders: Orders SARS-CoV2/FLU/RSV Today R09.89 - Other specified symptoms and signs involving the circulatory and respiratory systems Medications: New benzonatate 100 mg PO BID-TID PRN 14 caps 0RF cough Coding Level of Care Code Est Pt Level 3 (56519) Diagnoses Viral upper respiratory tract infection J06.9 URI type: unspecified viral URI
== END 2025-10-27 16:05 | disposition home or self-care (01) ==
PROVIDERS: PCP Nurse Practitioner Family; Visit Provider Physician Assistant
DX: J06.9 Acute upper respiratory infection, unspecified (principal)

== ENCOUNTER 2025-10-27 15:40 | Outpatient (REF) | payer OTHER, SELFPAY ==
--- OUTSIDE RECORDS SUMMARY | 2025-10-27 20:32 | XMS_ITS | Continuity of Care Document ---
Author Name [facility] Organization [facility] Care Team Providers Care Zipper Measurer Name Role Phone [facility] Unavailable Unavailable Problems Combined list of problems from Department of Defense and Veterans Affairs facilities. It does not include entries that were removed or entered in error. Problem Status Onset Date Problem Type Date of Resolution Comments Source Abnormal Menstruation (SCT 626110907) Active Condition [facility] Anemia (SCT [id number]) Active Condition Jul 12, 2020 Entered By: ADEEL SHANNON Comment: Hemoglobin was 8.8 in Aug 2019- under [facility] Hyperlipidemia (SCT 95605212) Active Condition [facility] Menorrhagia Active Condition Jul 12, 2020 Entered By: ADEEL SHANNON Comment: since April 2020, continuous bleeding since 2020 [facility] Encounter for other administrative examinations Active Condition [facility] Test Negative Inactive Condition [facility] Patient Education Active Condition [facility] Gynecologic Services Contraceptive General Counseling Active Condition [facility] Dietary Counseling Pertaining To Osteoporosis Active Condition [facility] Guidance: Concerns About Unsafe Sexual Practices Inactive Condition [facility] overweight Inactive Condition [facility] dietary calcium deficiency Inactive Condition [facility] visit for: services physical accession Inactive Condition [facility] Need For Prophylactic Antibiotics Inactive Condition [facility] allergy to drugs antibiotic agents Active Condition [facility] Observation For Suspected Condition Active Condition [facility] visit for: ears / hearing exam Active Condition [facility] Medications Combined list of outpatient medications from Department of Defense and Veterans Affairs facilities.Medications provided include 1) outpatient medications from the last 15 months, and 2) patient-reported medications. Medication Details Route Status Indication(s) Patie nt Instructions Prescription Expires Prescription Number Last Dispense Date Ordering Provider Order Date Order Qty Source FERROUS SO4 324MG TAB,EC TAKE ONE TABLET BY MOUTH TWICE A DAY ORAL ACTIVE JONES 2019 [facility] Allergies, Adverse Reactions, Alerts Combined list of allergies from Department of Defense and Veterans Affairs facilities. It does not include entries that were removed or entered in error. Substance Category Reaction Severity Reaction type Status Date Reported Comments Source AUGMENTIN Propensity to adverse reactions to drug (finding) Urticaria active 0 [facility] AUGMENTIN (AMOX TR/POTASSIUM CLAVULANATE) Drug allergy (disorder) Rash active 1 [facility] PENICILLIN Propensity to adverse reactions to drug (finding) Eruption active 9 [facility] PENICILLIN Propensity to adverse reactions to drug (finding) Urticaria active 0 [facility] Immunizations Combined list of available immunizations from the Department of Defense and Veterans Affairs facilities. Immunization Series Date Given Administered By Site Reaction Lot Number CVX Code Drug Materials Management Clerk Status Comments Source INFLUENZA, INJECTABLE, QUADRIVALENT, PRESERVATIVE FREE 2021 150 complet ed HISTORICA L INFORMATI ON - [facility]ies vaccine, for intramuscular injection RETIRED CODE 2 2016 UNK 18 Sclavo (SCL) complet ed rabies vaccine, for intramusc ular injection RETIRED CODE DoD rabies vaccine, for intramuscular injection RETIRED CODE 1 2016 UNK 18 Sclavo (SCL) complet ed rabies vaccine, for intramusc ular injection RETIRED CODE [facility] Influenza, injectable, quadrivalent, preservative free 0 2015 [id number] 150 [employer] (SKB) complet ed Influenza , injectabl e, quadrival ent, preservat mary free DoD typhoid Vi capsular polysaccharid e vaccine 1 2015 KAMILA SPIVEY [id number] 101 Sanofi Pasteur (PMC) complet ed typhoid Vi capsular polysacch aride vaccine DoD meningococcal polysaccharid e (groups A, C, Y and W-135) diphtheria toxoid conjugate vaccine (MCV4P) 1 2015 KAMILA SPIVEY [id number] 114 Sanofi Pasteur (PMC) complet ed meningoco ccal polysacch aride (groups A, C, Y and W-135) diphtheri a toxoid conjugate vaccine (MCV4P) DoD Influenza, injectable, quadrivalent, preservative free 0 2014 UNK 150 (TRN) complet ed Influenza , injectabl e, quadrival ent, preservat mary free [facility] Influenza, injectable, quadrivalent, preservative free 0 2013 [id number] 150 [employer] (SKB) complet ed Influenza , injectabl e, quadrival ent, preservat mary free DoD Influenza, seasonal, injectable, preservative free 0 2012 [id number] 140 Novartis Helijia Rodríguez. (NOV) complet ed Influenza , seasonal, injectabl e, preservat mary free DoD Influenza, seasonal, injectable, preservative free 0 2011 [id number] 140 [facility] [employer], Cardiovascular Decisions. (CSL) complet ed Influenza , seasonal, injectabl e, preservat mary free DoD influenza virus vaccine, whole virus 0 2010 [id number] 16 [facility] [employer] (CSL) complet ed influenza virus vaccine, whole virus DoD hepatitis A and hepatitis B vaccine 3 2010 [id number] 104 [facility] (SKB) complet ed hepatitis A and hepatitis B vaccine DoD poliovirus vaccine, inactivated 1 2010 MOISÉS BLAKE [id number] 10 Sanofi Pasteur ([facility]) complet ed polioviru s vaccine, inactivat ed DoD yellow fever vaccine 1 2010 MOISÉS BLAKE [id number] 37 [employer] PASTEUR (CLINICAL LAB SCIENTIST) complet ed yellow fever vaccine DoD typhoid Vi capsular polysaccharid e vaccine 1 2010 MOISÉS BLAKE [id number] 101 [employer] PA[employer] (CLINICAL LAB SCIENTIST) complet ed typhoid Vi capsular polysacch aride vaccine DoD hepatitis A and hepatitis B vaccine 1 2010 MOISÉS BLAKE [id number] 1BA 104 [facility] (SKB) complet ed hepatitis A and hepatitis B vaccine DoD measles and rubella virus vaccine 0 2010 04 () Not Given measles and rubella virus vaccine DoD varicella virus vaccine 0 2010 21 () Not Given varicella virus vaccine DoD influenza virus vaccine, whole virus 1 2010 Unknown, Provider [id number] [facility] (SKB) complet ed influenza virus vaccine, whole virus DoD meningococcal C conjugate vaccine 1 2010 Unknown, Provider [id number] 103 Sanofi Pasteur (PMC) complet ed meningoco ccal C conjugate vaccine DoD hepatitis A and hepatitis B vaccine 1 2010 Unknown, Provider [id number] 104 Sanofi Pasteur (PMC) complet ed hepatitis A and hepatitis B vaccine DoD tetanus toxoid, reduced diphtheria toxoid, and acellular pertu is vaccine, adsorbed 1 2010 Unknown, Provider [id number] 115 [employer] PA[employer] (CLINICAL LAB SCIENTIST) complet ed tetanus toxoid, reduced diphtheri a toxoid, and acellular pertussis vaccine, adsorbed DoD Encounters Combined list of: 1) Encounters from Department of Veterans Affairs facilities going backup to the last 18 months, not all VA inpatient encounters are included; 2) Encounters from the Department of Defense facilities going backup to 280 months. Location Location Details Encounter Type Encounter Number Reason For Visit Attending Provider ADM Date DC Date Status Disposition Source [facility](Me d. Assessmen t/1523) OUTPATIENT [id number] CELESTINA MURRY 01/25 Released w/o Limitations [facility]( Med. Assessm ent/152 3) [facility](Au diology [facility] 1523) OUTPATIENT [id number] ALFREDO PELLETIER 01/25 Released w/o Limitations [facility]( Audiolo gy [facility] 1523) [facility](Op tometry [facility] 1523) OUTPATIENT [id number] recruit screen SHELLY PERKINS 01/25 Released w/o Limitations [facility]( Optomet ry [facility] 1523) [facility](We ness Clinic Female) OUTPATIENT [id number] class TIA CARIAS 01/26 Released w/o Limitations [facility]( [facility] Female) [facility](Fe male Screening 1523) OUTPATIENT [id number] inpro KIA SAWYER 01/26 Released w/o Limitations [facility]( Female Screeni ng 1523) [employer](Body Former ecology) OUTPATIENT [id number] AD pregnan cy test TREE MARTINEZ 06/26 Released w/o Limitations [employer](G ynecolo gy) [facility]([facility] ion) OUTPATIENT [id number] add on non occ for usCATY Bolivar 06/29 Released w/o Limitations [facility]( [facility](Gr Immunizat ion Cl) OUTPATIENT [id number] Notes Entered by: VEL SINCLAIR 29 Jun 2016 0904 ------- ------- ------- ------- -- KAMILA MOLINA 06/29 Released w/o Limitations [facility]( Immuniz ation Cl) [facility]( oton [facility]ometry Clinic) OUTPATIENT [id number] Routine Eye Exam/De LUIS Mario 07/11 Released w/o Limitations [facility]( [facility]) [facility]( Deploymen t Cl) OUTPATIENT [id number] PREDEPL OYMENT DIOMEDES IBARRA 07/11 Released w/o Limitations [facility]( Deploym ent Cl) [facility]( [facility]) OUTPATIENT [id number] Notes Entered by: JORGE PIMENTEL 31 Jul 2016 1009 ------- ------- ------- ------- -- Spectac les Fit and Dispens e JORGE EVANS 07/31 Released w/o Limitations [facility]( [facility]) [facility]) OUTPATIENT [id number] Notes Entered by: Bryce HOFF 18 Sep 2016 0952 ------- ------- ------- ------- -- MOB-SRIRAM CHIN 09/18 Released w/o Limitations [facility](NMP S) [place] OUTPATIENT [id number] SORE THROAT WITH FEVER JOVANNA CARLTON 09/24 Released w/o Limitations [place] OUTPATIENT [id number] Notes Entered by: YOSELIN CONCEPCION 22 Nov 2016 1508 ------- ------- ------- ------- -- FARHANA Reddy - NMCB 14 REBECCA CASTORENA 11/22 Released w/o Limitations [place]) [place] OUTPATIENT [id number] Chit for lacerat ion on fifth digit right hand SEGUNDOBOOM BOO Bev 12/12 Released with Work/Duty Limitations [place]) [place]) OUTPATIENT [id number] Notes Entered by: ROSHNI BLAKE 09 Jul 2017 1333 ------- ------- ------- ------- -- NMCB14 RENEE FELIX 07/09 Released w/o Limitations [place]) [place] OUTPATIENT [id number] ERIN GILMORE 07/09 Released w/o Limitations [place] [facility]) OUTPATIENT [id number] Notes Entered by: SMILEY MONTIEL 22 Jul 2017 0818 ------- ------- ------- ------- -- ANNE SAGE 07/22 Released w/o Limitations [facility](NMP S) [place] OUTPATIENT [id number] Notes Entered by: GARY ALFREDO 24 Jul 2017 1030 ------- ------- ------- ------- -- Post Deploym ent GARY ALFREDO 07/24 Released w/o Limitations [place]([address] -[facility]) Procedures Combined list of: 1) Procedures from Department of Veterans Affairs facilities going back up to thelast 18 months, not all VA non-surgical procedures are included; 2) All procedures from the Department of Defense facilities. Procedure Procedure Type Code Date Perfomer Comments [facility] PATIENT EDUCATION, NOT OTHERWISE CLASSIFIED, NON-PHYSICIAN PROVIDER, INDIVIDUAL, PER SESSION [facility] FITTING OF SPECTACLES, EXCEPT FOR APHAKIA; MONOFOCAL [facility] FITTING OF SPECTACLES, EXCEPT FOR APHAKIA; MONOFOCAL DoD IMMUNIZATION ADMINISTRATION (INCLUDES PERCUTANEOUS, INTRADERMAL, SUBCUTANEOUS, OR INTRAMUSCULAR INJECTIONS); EACH ADDITIONAL VACCINE (SINGLE OR COMBINATION VACCINE/TOXOID) [facility] AUDIOMETRIC TESTING OF GROUPS DoD IMMUNIZATION ADMINISTRATION (INCLUDES PERCUTANEOUS, INTRADERMAL, SUBCUTANEOUS, OR INTRAMUSCULAR INJECTIONS); 1 VACCINE (SINGLE OR COMBINATION VACCINE/TOXOID) DoD IMMUNIZATION ADMINISTRATION (INCLUDES PERCUTANEOUS, INTRADERMAL, SUBCUTANEOUS, OR INTRAMUSCULAR INJECTIONS); 1 VACCINE (SINGLE OR COMBINATION VACCINE/TOXOID) DoD VIS FUNCT SCREEN,AUTOMAT/SEMI -AUTOMAT BILAT QUANT DETERM VISUAL ACUITY,OCULAR ALIGN,COLOR VISION,PSEUDOISOCHR OMAT PLATES,& FIELD VIS (MAY INC ALL/SOME SCRN DETERM FOR CONTRAST SENSITIV,VIS UND GLARE) [facility] PURE TONE AUDIOMETRY (THRESHOLD); AIR ONLY DoD IMMUNIZATION ADMINISTRATION (INCLUDES PERCUTANEOUS, INTRADERMAL, SUBCUTANEOUS, OR INTRAMUSCULAR INJECTIONS); 1 VACCINE (SINGLE OR COMBINATION VACCINE/TOXOID) [facility] COLLECTION OF VENOUS BLOOD BY VENIPUNCTURE DoD IMMUNIZATION ADMINISTRATION (INCLUDES PERCUTANEOUS, INTRADERMAL, SUBCUTANEOUS, OR INTRAMUSCULAR INJECTIONS); 1 VACCINE (SINGLE OR COMBINATION VACCINE/TOXOID) [facility] COLLECTION OF VENOUS BLOOD BY VENIPUNCTURE DoD Patient education, not otherwise cla ified, non-physician provider, individual, per se ion Patient education, not otherwise classified, non-physician provider, individual, per session [id number] RENEE FELIX Threshold Audiogram (Pure Tone) Threshold Audiogram (Pure Tone) 52557 RENEE FELIX [facility] Testing Audiometry Group Testing 33576 RENEE FELIX [facility] Venipuncture Venipuncture 96653 016 SRIRAM SCHMITZ [facility] Fitting Monofocal Except For Aphakia [facility] Fitting Monofocal Except For Aphakia 21840 016 JORGE EVANS [facility] Fitting Monofocal Except For Aphakia [facility] Fitting Monofocal Except For Aphakia 65529 016 LUIS CORRALES Determination Of Refractive State Determination Of Refractive State 36183 016 LUIS CORRALES Ophthalmological New Patient Start Comprehensive Care Ophthalmological New Patient Start Comprehensive Care 86026 016 LUIS CORRALES Typhoid Vaccine Vi Capsular Polysaccharide, For Intramus Use Typhoid Vaccine Vi Capsular Polysaccharide, For Intramus Use 88995 016 KAMILA SPIVEY Typhoid, ViCPs; Series #: 1; .5 mL; IM; Left Arm; Mfg: Sanofi Pasteur; Lot: [id number]. [facility] Meningococcal Polysaccharide Diphtheria Toxoid Conjugate Vaccine 016 KAMILA SPIVEY Meningococcal MCV4P; Series #: 1; .5 mL; IM; Left Arm; Mfg: Sanofi Pasteur; Lot: [id number]. [facility] Immunization Administration By Injection, One Vaccine Immunization Administration By Injection, One Vaccine 65870 016 KAMILA SPIVEY Immunization Administration By Injection, Each Additional Vaccine Immunization Administration By Injection, Each Additional Vaccine 46105 016 KAMILA SPIVEY [facility] Testing [facility] Testing 40242 016 CATY SHAFER Threshold Audiogram (Pure Tone) Threshold Audiogram (Pure Tone) 03287 016 CATY SHAFER Determination Of Refractive State Determination Of Refractive State 18455 011 SHELLY PERKINS [facility] Fitting Monofocal Except For Aphakia [facility] Fitting Monofocal Except For Aphakia 70837 011 SHELLY PERKINS Visual Function Screening Visual Function Screening 56420 011 SHELLY PERIKNS [facility] Testing [facility]ometry Group Testing 15067 011 ALFREDO PELLETIER [facility] Threshold Audiogram (Pure Tone) Threshold Audiogram (Pure Tone) 62027 011 ALFREDO PELLETIER [facility] Social History Combined list of available smoking, tobacco, and other social history from Department of Defense and Veterans Affairs facilities. Social History Type Response Date Comment Sour e Tobacco smoking status [facility] NEVER USED 07/12/2020 [facility] This section is an empty social history section. DoD
[2025-10-28 13:05] LABS: Resp Syncy Virus RNA Qual PCR NEGATIVE (Negative); SARS COV2 PCR INHOUSE POSITIVE (Negative)
== END 2025-10-27 15:41 | disposition home or self-care (01) ==
LOC: HO.LNP 15:40
PROVIDERS: Physician Assistant; PCP Nurse Practitioner Family
DX: J06.9 Acute upper respiratory infection, unspecified (principal)
CPT/HCPCS: 87637